=== PATIENT | male | born 1935 | race Caucasian/White ===

== ENCOUNTER 2016-07-26 12:08 | Observation (INO) | payer MEDICARE, BC ==
--- NOTE | ~2016-07-26 | DS ---
Discharge Summary [address] [place]. [address] NAME: JAMA CANSECO : 31 STATUS : DIS Nilson PAT#: [id number] AGE: 81 ADM/REG DATE : 07/26/16 MR#: [id number] REPORT SERV DATE: 07/28/16 DICTATED BY: JOHANNA CALLAHAN DATE: 07/27/16 REPORT STATUS : Draft TRANSCRIBED BY: MODL DATE: 07/27/16 ADMISSION DATE: 07/26/2016 DISCHARGE DATE: 07/27/2016 DISCHARGING PHYSICIAN: Dr. Callahan. FINAL DIAGNOSES: 1. Musculoskeletal chest pain. 2. Right-sided radicular pain lumbar versus cervical. 3. Coagulopathy. 4. Degenerative joint disease. 5. Chronic pain. 6. Permanent pacemaker present. 7. Anxiety. 8. Pleural base mass right apex, needs followup in three to six [address] Eubanks. 9. History of atrial fibrillation. 10.Restless legs syndrome. 11.Peripheral neuropathy. 12.Low back pain. 13.Hypertension. 14.Coronary artery disease. 15.Hyperlipidemia. 16.Hypothyroidism. 17.Gastroesophageal reflux disease. 18.Benign prostatic hypertrophy. HOSPITAL COURSE: The patient came in with some right-sided chest pain that began the day after he had sawed some limbs with a bow saw. Toradol was given in the emergency room. He was sent to the clinical decision unit for further evaluation. Serial enzymes showed troponin less than 0.02. 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 The pain abated. The patient is feeling fairly well at the time of discharge. Robaxin will be given for p.r.n. muscle spasm. Continue on the hydrocodone he was on previously. He will be discharged on the following medications, to follow up with Dr. Cipriano Eubanks on Friday: Albuterol and ipratropium one nebulizer four times a day; albuterol inhaler p.r.n.; Xanax 0.5 mg p.o. p.r.n.; amlodipine 10 mg p.o. daily; Nexium 20 mg p.o. every morning; Flonase two puffs every morning; Breo Ellipta 100/25 mcg one puff daily; gabapentin ; Abie 7.5/325 one p.o. b.i.d. p.r.n. pain; Atrovent nasal spray p.r.n. runny nose; Synthroid 75 mcg p.o. daily; Hyzaar 100/12.5 one tablet p.o. daily; Mirapex 0.5 mg p.o. at bedtime; pravastatin 40 mg p.o. at bedtime; sotalol 80 mg p.o. b.i.d.; Flomax 0.4 mg p.o. q.a.m.; warfarin 2.5 mg p.o. Friday, Friday, , Friday, and Friday and 5 mg on Friday; and Robaxin 500 mg p.o. p.r.n. muscle spasm or chest wall pain, he may take it in a p.r.n. fashion. Discharge Summary [address] [address] NAME: JAMA CANSECO : 31 STATUS : DIS Nilson PAT#: [id number] AGE: 81 ADM/REG DATE : 07/26/16 MR#: [id number] REPORT SERV DATE: 07/28/16 DICTATED BY: JOHANNA CALLAHAN DATE: 07/27/16 REPORT STATUS : Draft TRANSCRIBED BY: DENI DATE: 07/27/16 DB/DENI Johanna Callahan M.D. / [id number] CC: Devyn Sanford Jr, MD Michael Wilson, M.D. Benjamin S. Miller, MD
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
[2016-07-26 11:07] LABS: BASOPHILS 0.1 %; BASOPHILS ABSOLUTE 0.01 10/3/uL (0.0-0.16); EOSINOPHILS 1.2 %; EOSINOPHILS ABSOLUTE 0.14 10/3/uL (0.0-0.53); ER CBC TAT 0 Hrs 05 Mins; HEMATOCRIT 39.9 % (40.0-51.0); HEMOGLOBIN 12.9 g/dL (13.6-17.8); IMMATURE GRANULOCYTES 0.2 %; IMMATURE GRANULOCYTES ABSOLUTE 0.02 10/3/uL (0.0-0.11); LYMPHOCYTES 20.8 %; LYMPHOCYTES ABSOLUTE 2.34 10/3/uL (0.67-4.30); MEAN CORPUS HGB CONC 32.3 g/dL (32.0-36.0); MEAN CORPUSCULAR HEMOGLOB 27.4 pg (26.0-34.0); MEAN CORPUSCULAR VOLUME 84.7 fL (80-100); MONOCYTES 9.6 %; MONOCYTES ABSOLUTE 1.08 10/3/uL (0.21-1.20); NEUTROPHILS 68.1 %; NEUTROPHILS ABSOLUTE 7.68 10/3/uL (2.02-8.40); PLATELET COUNT 199 10/3/uL (150-400); RED CELL COUNT 4.71 10/6/uL (4.7-6.1); WHITE BLOOD CELLS 11.3 10/3/uL (4.5-10.5)
[2016-07-26 11:08] LABS: MANUAL DIFF NO %; RBC DISTRIBUTION WIDTH 17.2 % (12.0-16.0)
[2016-07-26 11:14] LABS: INTERNATIONAL NORMAL RATI 1.2 UNITS (-); PARTIAL THROMBO TIME 33.9 SEC (22.5-37.2)
[2016-07-26 11:16] LABS: PROTIME (NOT ORD) 15.2 SEC (12.0-14.5)
[2016-07-26 11:23] LABS: CALCIUM, SERUM 8.5 MG/DL (8.5-10.4); CHEST PAIN PROFILE TAT 0 Hrs 21 Mins; CHLORIDE, SERUM 101 MMOL/L (96-112); CO2 (CARBON DIOXIDE) 29 MMOL/L (24-34); CREATININE 1.24 MG/DL (0.70-1.30); GFR AFRICAN AMERICAN 62 ML/MIN (>=60); GFR NON AFRICAN AMERICAN 53 ML/MIN (>=60); POTASSIUM, SERUM 4.6 MMOL/L (3.5-5.3); SODIUM, SERUM 138 MMOL/L (135-148); TROPONIN I <0.02 NG/ML (<0.05)
[2016-07-26 11:24] LABS: BUN (BLOOD UREA NITROGEN) 24 MG/DL (6-23); GLUCOSE, SERUM 149 MG/DL (60-99)
[~2016-07-26 12:08] MED LIST: ACCUNEB INH; ALEVE220 MG PO; ALLEGRA-D24 HOUR PO; APRES25 PO; ASAB PO; ATRONASAL3 NAS; ATROVENTUD INH; BETAPACE80 PO; BREO ELLIPTA INH; C5 PO; DRAMAMINE25 MG PO; ETODOLAC ER400 MG OR; FISH OIL1200 MG PO; FLOMAX4 PO; FLONASE NAS; GRALISE600 MG PO; HYZAAR1 TAB PO; IPRATR-ALBUTEROL; JALYN 0.5-0.41 EACH PO; JALYN PO; JANTOVEN5 MG; LEVOTHYROXIN50 MCG PO; LEVOTHYROXIN75 MCG PO; LOVENOX80 SC; MAGNESIUM PO; MELATONIN1 M1 PO; METHOC500B PO; MIRAPEX5 PO; MOBIC15 MG PO; NEUR100 PO; NEUR400 PO; NEXIUM20 M1 PO; NEXIUM40 PO; NITROII20C TOP; NITROSTAT0.4 MG SL; NORCO1 TA2 PO; NORV5 PO; P20 PO; PCET PO; PEP20 PO; PLAVIX PO; PRAVACHOL40 MG PO; PREV15 PO; PRILO PO; PRIN10 PO; PROVENTSOL INH; PROVHFA INH; RAN500 PO; REQUIP1 PO; SYMBICORT 160/41 INH INH; TYLENOL ARTH650 MG PO; ULTRAM50 PO; VERAMYST27.5 MCG NAS; X5 PO; ZESTORETIC PO; ZESTRIL20 MG PO; ZOCOR40 PO; [UNRECOGNIZED DRUG - OTHER]; [UNRECOGNIZED DRUG - OTHER]
[2016-07-26 13:46] LABS: D-DIMER QUANTITATIVE 0.86 ug/mLFEU (< 0.50)
[2016-07-26] MEDS ORDERED: SYN075 PO (17:48)
[2016-07-26] MEDS ORDERED: NEUR400 PO (17:48)
[2016-07-26] MEDS ORDERED: MIRAPEX5 PO (17:49)
[2016-07-26] MEDS ORDERED: C5 PO (17:50)
[2016-07-26] MEDS ORDERED: C25 PO (17:51)
[2016-07-26] MEDS ORDERED: X5 PO (17:52)
[2016-07-26] MEDS ORDERED: NORCO1 TA2 PO (17:52)
[2016-07-26] MEDS ORDERED: NORV10 PO (17:53)
[2016-07-26] MEDS ORDERED: NEXIUM20 M1 PO (17:53)
[2016-07-26] MEDS ORDERED: PRAVACHOL40 MG PO (17:54)
[2016-07-26] MEDS ORDERED: FLOMAX4 PO (17:54)
[2016-07-26] MEDS ORDERED: HYZAAR1 TAB PO (17:55)
[2016-07-26] MEDS ORDERED: BREO ELLIPTA INH (17:56)
[2016-07-26] MEDS ORDERED: BETAPACE80 PO (17:56)
[2016-07-26] MEDS ORDERED: FLONASE NAS (17:57)
[2016-07-26] MEDS ORDERED: ATRONASAL3 NAS (17:57)
[2016-07-26] MEDS ORDERED: DUONEB INH (18:00)
[2016-07-26] MEDS ORDERED: VENTOLIN HFA INH (18:01)
[2016-07-26 19:45] LABS: C-REACTIVE PROTEIN 6.4 MG/L (<8.0); TROPONIN I <0.02 NG/ML (<0.05)
[2016-07-26 20:37] LABS: PROCALCITONIN 0.06 ng/mL (<0.5)
[2016-07-27 05:27] LABS: INTERNATIONAL NORMAL RATI 1.3 UNITS (-); PROTIME (NOT ORD) 16.2 SEC (12.0-14.5)
[2016-07-27] MEDS ORDERED: METHOC500B PO (14:25)
== END 2016-07-27 14:48 | disposition home or self-care (01) ==
LOC: ER 12:08 → CDU1 17:28 → CDU2 18:21
PROVIDERS: Emergency Medicine; Internal Medicine
DX: R07.89 Other chest pain (principal); M19.90 Unspecified osteoarthritis, unspecified site; F41.9 Anxiety disorder, unspecified; I48.91 Unspecified atrial fibrillation; G25.81 Restless legs syndrome; G62.9 Polyneuropathy, unspecified; I10 Essential (primary) hypertension; I25.10 Atherosclerotic heart disease of native coronary artery without angina pectoris; E78.5 Hyperlipidemia, unspecified; E03.9 Hypothyroidism, unspecified; K21.9 Gastro-esophageal reflux disease without esophagitis; N40.0 Benign prostatic hyperplasia without lower urinary tract symptoms; M54.9 Dorsalgia, unspecified; J44.9 Chronic obstructive pulmonary disease, unspecified; Z95.0 Presence of cardiac pacemaker; Z98.1 Arthrodesis status; Z82.49 Family history of ischemic heart disease and other diseases of the circulatory system; Z83.3 Family history of diabetes mellitus; Z98.890 Other specified postprocedural states
CPT/HCPCS: 71010; 71020; 71275; 80048; 83735; 84145; 84484; 85025; 85379; 85610; 85652; 85730; 86140; 93005; 94640; 96372; 96374; 96375; 96376; 99285; A9270-GY; G0378; J1885; J2405